=== PATIENT | female | born 1985 | race Two or more races ===

== ENCOUNTER 2018-10-16 22:22 | Emergency (ER) | payer SELFPAY ==
[~2018-10-16] VITALS: Ht 152.4 cm; Wt 87.5 kg
[2018-10-16 23:08] LABS: Urine Bacteria NONE SEEN /hpf (None Seen); Urine Blood Negative /uL (Negative); Urine Specific Gravity 1.021 (1.001-1.035); Urine WBC 11 /hpf (0 - 5)
[2018-10-17 02:05] VITALS: BP 122/92
== END 2018-10-17 02:41 | disposition home or self-care (01) ==
LOC: ER 22:22
DX: S16.1XXA Strain of muscle, fascia and tendon at neck level, initial encounter (principal); X58.XXXA Exposure to other specified factors, initial encounter; Y93.89 Activity, other specified; Y99.8 Other external cause status; Y92.89 Other specified places as the place of occurrence of the external cause
CPT/HCPCS: 72040; 81001; 81025; 82962

== ENCOUNTER 2019-04-01 11:56 | Emergency (ER) | payer MEDICAID, OTHER ==
[~2019-04-01] VITALS: Ht 152.4 cm; Wt 83.5 kg
[2019-04-01 12:45] LABS: Urine Bacteria FEW /hpf (None Seen); Urine Blood Negative /uL (Negative); Urine Mucus FEW (None Seen); Urine Specific Gravity 1.028 (1.001-1.035); Urine WBC 1 /hpf (0 - 5)
[2019-04-01 14:16] VITALS: BP 125/74
== END 2019-04-01 15:23 | disposition home or self-care (01) ==
LOC: ER 12:13
DX: O26.891 Other specified pregnancy related conditions, first trimester (principal); R10.9 Unspecified abdominal pain; Z3A.01 Less than 8 weeks gestation of pregnancy
CPT/HCPCS: 36415; 76801; 81001; 84702

== ENCOUNTER 2019-09-17 19:12 | Observation (INO) | payer MEDICAID ==
[~2019-09-17] VITALS: Ht 152.4 cm; Wt 91.2 kg
[2019-09-17 19:32] VITALS: BP 114/66
[2019-09-17] MEDS ORDERED: TERBUTALINE SULFATE 1 MG/ML 1ML VIAL SC ONE (22:45)
[2019-09-17 23:09] LABS: Urine Bacteria FEW /hpf (None Seen); Urine Blood Negative /uL (Negative); Urine Mucus FEW (None Seen); Urine Specific Gravity 1.029 (1.001-1.035); Urine WBC 3 /hpf (0 - 5)
[2019-09-17 23:19] LABS: Alcohol, Urine < 3.0 mg/dL (0-10); Amphetamine Screen, Urine NEGATIVE (NEGATIVE); Barbiturate Scree,Urine NEGATIVE (NEGATIVE); Benzodiazephine Screen, Urine NEGATIVE (NEGATIVE); Cannabinoid Screen, Urine NEGATIVE (NEGATIVE); Cocaine Screen, Urine NEGATIVE (NEGATIVE); Opiate Scree,Urine NEGATIVE (NEGATIVE); Phencyclidine Screen, Urine NEGATIVE (NEGATIVE)
[2019-09-17] MEDS ORDERED: LACTATED RINGER'S 1,000 ML IV SCH (23:20)
[2019-09-17] MEDS ORDERED: LACTATED RINGER'S 1,000 ML IV ONE (23:20)
== END 2019-09-18 03:12 | disposition home or self-care (01) | DRG 566 ==
LOC: ER 19:12 → LDRP 19:43
PROVIDERS: ADMIT Specialist; ATTEND Specialist
DX: O9A.213 Injury, poisoning and certain other consequences of external causes complicating pregnancy, third trimester (principal); R10.30 Lower abdominal pain, unspecified; O36.8130 Decreased fetal movements, third trimester, not applicable or unspecified; W01.0XXA Fall on same level from slipping, tripping and stumbling without subsequent striking against object, initial encounter; Y93.89 Activity, other specified; Y92.89 Other specified places as the place of occurrence of the external cause; Z3A.31 31 weeks gestation of pregnancy; Z87.891 Personal history of nicotine dependence
CPT/HCPCS: 59025; 76815; 80307; 81001; 81002; 82948; 82962; 96360; 96361; 96372; 99285; G0378; J3105

== ENCOUNTER 2019-09-24 11:29 | Emergency (ER) | payer MEDICAID ==
[~2019-09-24] VITALS: Ht 152.4 cm; Wt 90.3 kg
[2019-09-24 11:52] VITALS: BP 117/44
[2019-09-24] MEDS ORDERED: ACETAMINOPHEN 500 MG TAB PO ONE (12:30)
== END 2019-09-24 12:49 | disposition home or self-care (01) ==
LOC: ER 11:29
DX: O26.893 Other specified pregnancy related conditions, third trimester (principal); M54.42 Lumbago with sciatica, left side; M54.41 Lumbago with sciatica, right side; E11.9 Type 2 diabetes mellitus without complications; Z3A.32 32 weeks gestation of pregnancy

== ENCOUNTER 2021-03-07 20:51 | Emergency (ER) | payer MEDICAID ==
[~2021-03-07] VITALS: Ht 152.4 cm; Wt 93.0 kg
[2021-03-07] MEDS ORDERED: ACETAMINOPHEN 325 MG TAB PO ONE (23:15)
[2021-03-07 23:22] VITALS: BP 124/79
[2021-03-08] MEDS ORDERED: cefTRIAXone W LIDOCAINE 1 GM IM IM ONE (01:45)
[2021-03-08] MEDS ORDERED: DexAMETHasone SOD PHOS 10MG/1ML VIAL INJ IM ONE (01:45)
[2021-03-08] MEDS ORDERED: cefTRIAXone SOD 1,000 MG VL IM ONE (02:00)
== END 2021-03-08 02:29 | disposition home or self-care (01) ==
LOC: ER 20:52
DX: U07.1 COVID-19 (principal); J12.82 Pneumonia due to coronavirus disease 2019
CPT/HCPCS: 36415; 71045; 82962; 87426; 96372; 99284; J0696; J1100

== ENCOUNTER 2021-07-24 10:13 | Emergency (ER) | payer MEDICAID ==
[~2021-07-24] VITALS: Ht 152.4 cm; Wt 88.5 kg
[2021-07-24 10:51] VITALS: BP 135/79
[2021-07-24 11:29] LABS: Basophils # (auto) 0.1 10 ^3/uL (0-0.2); Basophils % (auto) 0.5 % (0.0-2.0); Eosinophils # (auto) 0.1 10 ^3/uL (0-0.8); Eosinophils % (auto) 0.5 % (0.0-7.0); Hematocrit 39.1 % (36.0-46.0); Hemoglobin 13.3 g/dL (12.2-16.2); Lymphocytes # (auto) 2.5 10 ^3/uL (0.4-5.4); Mean Corpuscular Hemoglobin 27.1 pg (28.0-32.0); Mean Corpuscular Hgb Conc. 33.9 g/dL (32.0-36.0); Mean Corpuscular Volume 80.2 fL (80.0-100.0); Monocytes # (auto) 0.5 10 ^3/uL (0-1.3); Neutrophils # (auto) 9.3 10 ^3/uL (1.6-8.6); Red Blood Cells 4.88 10^6/uL (4.0-5.20); Red Cell Distribution Width 13.8 % (11.8-14.3); White Blood Cell 12.4 10^3/uL (4.4-10.8)
[2021-07-24 12:19] LABS: Albumin 3.1 g/dL (3.4-5.0); Potassium 3.7 mmol/L (3.5-5.1)
[2021-07-24 12:22] LABS: BUN/Creatinine Ratio 19.2; Bilirubin, Total 0.4 mg/dL (0.2-1.0); Total Protein 7.3 g/dL (6.4-8.2)
[2021-07-24 13:03] LABS: Urine Bacteria FEW /hpf (None Seen); Urine Blood 3+ /uL (Negative); Urine Budding Yeast MODERATE /hpf (None Seen); Urine Specific Gravity 1.032 (1.001-1.035); Urine WBC 580 /hpf (0 - 5)
[2021-07-24] MEDS ORDERED: NITR-87 PO (13:14)
[2021-07-24] MEDS ORDERED: cefTRIAXone W LIDOCAINE 1 GM IM IM ONE (13:15)
[2021-07-24] MEDS ORDERED: cefTRIAXone SOD 1,000 MG VL ONE (17:21)
[2021-07-24] MEDS ORDERED: HYDROcodone-ACET 5/325MG TAB PO ONE (17:30)
== END 2021-07-24 17:20 | disposition home or self-care (01) ==
LOC: ER 10:13
DX: N39.0 Urinary tract infection, site not specified (principal); N93.8 Other specified abnormal uterine and vaginal bleeding; D21.9 Benign neoplasm of connective and other soft tissue, unspecified; R42 Dizziness and giddiness; Z98.51 Tubal ligation status
CPT/HCPCS: 36415; 76830; 76856; 80053; 81001; 84702; 85025; 96372; 99284; J0696

== ENCOUNTER 2021-10-19 20:23 | Emergency (ER) | payer MEDICAID ==
[~2021-10-19] VITALS: Ht 154.9 cm; Wt 88.0 kg
[~2021-10-19 20:23] MED LIST: NITR-87 PO
[2021-10-19 22:19] VITALS: BP 152/92
== END 2021-10-20 01:38 | disposition left against medical advice (07) ==
LOC: ER 20:23
DX: R10.31 Right lower quadrant pain (principal); R35.0 Frequency of micturition; R30.0 Dysuria; M54.50 Low back pain, unspecified; Z53.21 Procedure and treatment not carried out due to patient leaving prior to being seen by health care provider

== ENCOUNTER 2024-06-14 01:09 | Inpatient (IN) | payer MEDICAID ==
[~2024-06-14] VITALS: Ht 172.7 cm; Wt 83.0 kg
--- NOTE | 2024-06-14 01:42 | ED.PDOC ---
History of Present Illness HPI Comments 39-year-old female presents with a chief complaint of SOB, nausea, vomiting, and constipation. Patient is a poor historian. Patient mentions that she has not had a bowel movement in 1 week. Patient mentions that anything that she drinks or eats she ends up vomiting it back up. Patient denies any blood in her emesis. Patient also denies any abdominal pain. Patient is requesting to be tested for COVID-19. Chief Complaint: Shortness of Breath Time Seen by MD: 01:32 Primary Care Provider: OUT OF AREA Reviewed Notes: Medications, Allergies Allergies: Coded Allergies: NO KNOWN ALLERGIES (Unverified , 10/16/18) Home Meds Active Scripts Nitrofurantoin Monohydrate Mac (Macrobid) 100 Mg Cap, 100 MG PO BID for 7 Days, #14 CAP Prov:HORTENSIA BERRIOS MD 07/24/21 Information Source: Patient Mode of Arrival: Ambulatory Severity: Moderate Timing: Days Duration: Since onset Prehospital treatment: None Past Medical History PAST MEDICAL HISTORY: DM Surgical History: , Tubal Ligation AIR INTELLIGENCE OFFICER History: Denies all AIR INTELLIGENCE OFFICER Hx Family History Family History: Reviewed,noncontributory to illness Social History Smoker: Non-Smoker Alcohol: Denies ETOH Use Drugs: Denies Drug Use Lives In: Home Constitutional: denies: chills, diaphoresis, fatigue, fever, malaise, sweats, weakness, others EENTM: denies: blurred vision, double vision, ear bleeding, ear discharge, ear drainage, ear pain, ear ringing, eye pain, eye redness, hearing loss, mouth pain, mouth swelling, nasal discharge, nose bleeding, nose congestion, nose pain, photophobia, tearing, throat pain, throat swelling, voice changes, others Respiratory: reports: shortness of breath; denies: cough, hemoptysis, orthopnea, SOB at rest, SOB with excertion, stridor, wheezing, others Cardiovascular: denies: chest pain, dizzy spells, diaphoresis, Dyspnea on exertion, edema, irregular heart beat, left arm pain, lightheadedness, palpitations, PND, syncope, others Gastrointestinal: reports: constipated, nausea, vomiting; denies: abdomen distended, abdominal pain, blood streaked bowels, diarrhea, dysphagia, difficult y swallowing, hematemesis, melena, poor appetite, poor fluid intake, rectal bleeding, rectal pain, others Genitourinary: denies: abnormal vagina bleeding, burning, dyspareunia, dysuria, flank pain, frequency, hematuria, incontinence, pain, , vagina discharge, urgency, others Neurological: denies: dizziness, fainting, headache, left sided numbness, left sided weakness, numbness, paresthesia, pre-existing deficit, right sided numbness, right sided weakness, seizure, speech problems, tingling, tremors, weakness, others Musculoskeletal: denies: back pain, gout, joint pain, joint swelling, muscle pain, muscle stiffness, neck pain, others Integumetry: denies: bruises, change in color, change in hair/nails, dryness, laceration, lesions, lumps, rash, wounds, others Allergic/Immunocompromised: denies: Difficulty Healing, Frequent Infections, Hives, Itching, others Hematologic/Lymphatic: denies: anemia, blood clots, easy bleeding, easy bruising, swollen glands, others Endocrine: denies: excessive hunger, excessive sweating, excessive thirst, excessive urination, flushing, intolerance to cold, intolerance to heat, unexplained weight gain, unexplained weight loss, others Psychiatric: denies: anxiety, bipolar disorder, depression, hopeless, panic disorder, schizophrenia, sleepless, suicidal, others All Other Systems: Reviewed and Negative Physical Exam General Appearance: No Apparent Distress, Normal HEENT: Normal ENT Inspection, Pharynx Normal, TMs Normal Neck: Full Range of Motion, Non-Tender, Normal, Normal Inspection Respiratory: Chest Non-Tender, Lungs Clear, No Accessory Muscle Use, No Respiratory Distress, Normal Breath Sounds Cardiovascular: No Edema, No JVD, No Murmur, No Gallop, Normal Peripheral Pulses, Regular Rate/Rhythm Breast Exam: Deferred Gastrointestinal: No Organomegaly, Non Tender, No Pulsatile Mass, Normal Bowel Sounds, Soft Genitalia: Deferred Pelvic: Deferred Rectal: Deferred Extremities: No calf tenderness, Normal capillary refill, Normal inspection, Normal range of motion, Non-tender, No pedal edema Musculoskeletal : Apperance: Normal Neurologic: Alert, software educator II-XII nml as Tested, No Motor Deficits, Normal Affect, Normal Mood, No Sensory Deficits Cerebellar Function: Normal Reflexes: Normal Skin: Dry, Normal Color, Warm Lymphatic: No Adenopathy Was a procedure done? Was a procedure done?: No Differential Dx Considerations may include: Differential diagnosis includes but is not limited to: asthma, pneumonia, congestive heart failure, pleural effusion, empyema, pulmonary embolus, and others X-Ray, Labs, Meds, VS Vital Signs Date Time Temp Pulse Resp B/P (MAP) Pulse Ox O2 Delivery O2 Flow Rate FiO2 06/14/24 03:04 114 28 96 Room Air* 0 21 06/14/24 01:44 20 100 Room Air* 0 21 06/14/24 01:40 97.5 101 28 111/56 (74) 98 97.5 06/14/24 01:33 97.8 110 30 107/72 (84) 97 97.8 06/14/24 01:33 30 97 Room Air 0 Lab Test 06/14/24 03:05 06/14/24 02:31 06/14/24 01:57 06/14/24 01:24 Range/Units Urine Color Colorless Yellow Urine Clarity Turbid H Clear Urine pH 5.5 5.0-9.0 Urine Specific [place] 1.013 1.001-1.035 Urine Protein Trace H Negative Urine Ketones 3+ H Negative Urine Blood 1+ H Negative /uL Urine Nitrite Negative Negative Urine Bilirubin Negative Negative Urine Urobilinogen Normal Negative mg/dL Urine Leukocyte Esterase 3+ Negative /uL Urine RBC 2 0 - 4 /hpf Urine WBC Clumps Present None Seen /hpf Urine Microscopic WBC 570 H 0-5 /HPF Urine Squamous Epithelial Cells Few <5 /hpf Urine Bacteria Few H None Seen /hpf Urine Glucose 4+ H Normal mg/dL Influenza Type A Antigen Negative Negative Influenza Type B Antigen Negative Negative SARS-CoV-2 Antigen (Rapid) Negative NEGATIVE White Blood Count 10.0 4.4-10.8 10^3/uL Red Blood Count 4.19 4.0-5.20 10^6/uL Hemoglobin 12.0 L 12.2-16.2 g/dL Hematocrit 34.7 L 36.0-46.0 % Mean Corpuscular Volume 82.7 80.0-100.0 fL Mean Corpuscular Hemoglobin 28.6 28.0-32.0 pg Mean Corpuscular Hemoglobin Concent 34.7 32.0-36.0 g/dL Red Cell Distribution Width 13.0 11.8-14.3 % Platelet Count 333 140-450 10^3/uL Mean Platelet Volume 7.6 6.9-10.8 fL Neutrophils (%) (Auto) 81.4 H 37.0-80.0 % Lymphocytes (%) (Auto) 10.6 10.0-50.0 % Monocytes (%) (Auto) 7.4 0.0-12.0 % Eosinophils (%) (Auto) 0.0 0.0-7.0 % Basophils (%) (Auto) 0.6 0.0-2.0 % Neutrophils # (Auto) 8.1 1.6-8.6 10 ^3/uL Lymphocytes # (Auto) 1.1 0.4-5.4 10 ^3/uL Monocytes # (Auto) 0.7 0-1.3 10 ^3/uL Eosinophils # (Auto) 0 0-0.8 10 ^3/uL Basophils # (Auto) 0.1 0-0.2 10 ^3/uL Nucleated Red Blood Cells 0.0 % Sodium Level 124 L 136-145 mmol/L Potassium Level 4.0 3.5-5.1 mmol/L Chloride Level 91 L 98-107 mmol/L Carbon Dioxide Level 21 20-31 mmol/L Anion Gap 12 5-15 Blood Urea Nitrogen 6 L 9-23 mg/dL Creatinine 0.83 0.550-1.02 mg/dL Glomerular Filtration Rate Calc 93 >90 mL/min BUN/Creatinine Ratio 7.2 L 10.0-20.0 Serum Glucose 392 H 74-106 mg/dL Calcium Level 9.0 8.7-10.4 mg/dL Total Bilirubin 0.6 0.2-1.0 mg/dL Aspartate Amino Transferase (AST) 44 H 13-40 U/L Alanine Aminotransferase (ALT) 67 H 7-40 U/L Alkaline Phosphatase 320 H 46-116 U/L B-Type Natriuretic Peptide 11.29 0-100 pg/mL Total Protein 6.6 5.7-8.2 g/dL Albumin 4.1 3.2-4.8 g/dL POC Glucose 394 H 70-106 mg/dl Current Medications Medications (Trade) Dose Ordered Sig/Shraddha Route Start Time Stop Time Status Last Admin Albuterol (Ventolin Medneb) 5 mg ONCE ONCE NEB 06/14/24 01:45 06/14/24 01:46 DC 06/14/24 01:47 Ipratropium [place] (Atrovent Medneb) 0.5 mg ONCE ONCE NEB 06/14/24 01:45 06/14/24 01:46 DC 06/14/24 01:47 Ondansetron HCl (Zofran) 4 mg ONCE ONCE IV 06/14/24 02:15 06/14/24 02:16 DC 06/14/24 02:17 Time of 1ST Reevaluation: 02:02 Reevaluation 1ST: Unchanged Patient Education/Counseling: Diagnosis, Treatment, Prognosis Family Education/Counseling: No Family Present Sepsis focused exam: focus exam completed (In the initial resuscitation at least 30 mL/kg of IV crystalloid fluid was NOT given within the first 3 hr due to concerns of fluid overload), time: (0300) Sepsis Sepsis Reasesment Focused Exam Sepsis focused exam: focus exam completed (In the initial resuscitation at least 30 mL/kg of IV crystalloid fluid was NOT given within the first 3 hr due to concerns of fluid overload), time: (0300) Departure 1 Departure Time of Disposition: 03:51 Impression: Primary Impression: Urinary tract infection Additional Impressions: Diabetes mellitus with hyperglycemia Hyponatremia Dehydration Disposition: 09 ADMITTED INPATIENT Condition: Guarded Comments Hyperglycemia, UTI, and Weakness Chief Complaint: Malaise, generalized weakness, bilateral flank pain, and shortness of breath History of Present Illness: 39-year-old female with a history of type 2 diabetes mellitus presents to the emergency department with complaints of malaise, generalized weakness, bilateral flank pain, and shortness of breath. Patient reports symptoms not improving despite interventions in the ED including IV fluid administration. Laboratory evaluation reveals significant hyperglycemia and evidence of urinary tract infection. Review of Systems: Constitutional: Positive for malaise and generalized weakness Respiratory: Positive for shortness of breath Genitourinary: Positive for bilateral flank pain All other systems reviewed and negative Past Medical History: Type 2 Diabetes Mellitus Lab Results: WBC: 10.0 (Normal) Hemoglobin: 12 Hematocrit: 35 Platelets: 333 (Normal) Sodium: 124 (Low) Blood Glucose: 394 mg/dL (Elevated) Urinalysis: Positive for infection Imaging and Other Relevant Results: No imaging studies documented Medical Decision Making: Summary Statement: 39-year-old female with poorly controlled diabetes presents with systemic symptoms, hyperglycemia, hyponatremia, and evidence of urinary tract infection with possible pyelonephritis. Problem List: 1. Severe hyperglycemia (glucose 394) 2. Urinary tract infection with possible pyelonephritis 3. Hyponatremia (Na 124) 4. Generalized weakness and malaise Differential Diagnosis: 1. Pyelonephritis 2. Diabetic ketoacidosis 3. Hyperglycemic hyperosmolar state 4. Sepsis 5. Simple urinary tract infection ED Course: Patient received IV fluid hydration without significant improvement in symptoms. Given the severity of hyperglycemia, evidence of infection, and persistent symptoms, decision made to admit for inpatient management. Assessment and Plan: 1. Hyperglycemia (Glucose 394) - Admit for blood glucose management - Initiate insulin protocol - Frequent blood glucose monitoring 2. Urinary Tract Infection with possible early pyelonephritis - Start broad-spectrum antibiotics - Blood cultures if not already obtained - Monitor response to treatment 3. Hyponatremia (Na 124) - Close monitoring of electrolytes - Careful fluid management considering both hyperglycemia and infection Disposition: Admit to medical floor for management of above conditions Billing Information: ICD-10: E11.65 - Type 2 diabetes mellitus with hyperglycemia ICD-10: N39.0 - Urinary tract infection, site not specified ICD-10: N10 - Acute pyelonephritis ICD-10: E87.1 - Hypo-osmolality and hyponatremia Critical Care Note Critical Care Time?: Yes (35 min-critical care time only) Critical care comment: Total critical care time: Approximately 36 minutes Due to a high probability of clinically significant, life threatening deterioration, the patient required my highest level of preparedness to intervene emergently and I personally spent this critical care time directly and personally managing the patient. This critical care time included obtaining a history; examining the patient; pulse oximetry; ordering and review of studies; arranging urgent treatment with development of a management plan; evaluation of patient's response to treatment; frequent reassessment; and, discussions with other providers. This critical care time was performed to assess and manage the high probability of imminent, life-threatening deterioration that could result in multi-organ failure. It was exclusive of separately billable procedures and treating other patients. Stability Stability form required: No Heart Score Heart Score: Heart Score Response (Comments) Value History N/A 0 EKG N/A 0 Age N/A 0 Risk Factors N/A 0 Troponin N/A 0 Total 0 I personally scribed for MIKO SHIELDS MD ([email or web address]) on 06/14/24 at 01:42. Electronically submitted by Gabriel Bennett ([email or web address]). MIKO SHIELDS MD Jun 14, 2024 01:42
[2024-06-14] MEDS: IPRATROPIUM BROM 0.5 MG/2.5ML INH SOL NEB ONE (01:47)
[2024-06-14] MEDS: ALBUTEROL SULF 2.5 MG/0.5ML(0.5%) NEB SOLN NEB ONE (01:47)
[2024-06-14 02:02] LABS: Basophils # (auto) 0.1 10 ^3/uL (0-0.2); Basophils % (auto) 0.6 % (0.0-2.0); Eosinophils # (auto) 0 10 ^3/uL (0-0.8); Hematocrit 34.7 % (36.0-46.0); Lymphocytes # (auto) 1.1 10 ^3/uL (0.4-5.4); Lymphocytes % (auto) 10.6 % (10.0-50.0); Mean Corpuscular Hemoglobin 28.6 pg (28.0-32.0); Mean Corpuscular Hgb Conc. 34.7 g/dL (32.0-36.0); Mean Corpuscular Volume 82.7 fL (80.0-100.0); Monocytes # (auto) 0.7 10 ^3/uL (0-1.3); Monocytes % (auto) 7.4 % (0.0-12.0); Neutrophils # (auto) 8.1 10 ^3/uL (1.6-8.6); Neutrophils % (auto) 81.4 % (37.0-80.0); Platelet Count (auto) 333 10^3/uL (140-450); Red Blood Cells 4.19 10^6/uL (4.0-5.20)
[2024-06-14] MEDS: ONDANSETRON HCL 4 MG/2 ML VIAL IV ONE (02:17)
[2024-06-14 02:22] LABS: Albumin 4.1 g/dL (3.2-4.8); Anion Gap 12 (5-15); BUN/Creatinine Ratio 7.2 (10.0-20.0); Carbon Dioxide 21 mmol/L (20-31); Total Protein 6.6 g/dL (5.7-8.2)
[2024-06-14 02:23] LABS: Alanine Aminotransferase 67 U/L (7-40); Alkaline Phosphatase 320 U/L (46-116); Aspartate Aminotransferase 44 U/L (13-40); Bilirubin, Total 0.6 mg/dL (0.2-1.0); Blood Urea Nitrogen 6 mg/dL (9-23); Chloride 91 mmol/L (98-107); Glucose 392 mg/dL (74-106); Sodium 124 mmol/L (136-145)
--- NOTE | 2024-06-14 02:24 | DVH ---
CHEST RADIOGRAPH Indication: SOB Technique: Single frontal view of the chest was obtained COMPARISON: CHEST PORTABLE on DOS: 03/07/21 FINDINGS: Lines and Tubes: None Lungs: Clear Pleura: No effusion. No pneumothorax. Cardiomediastinal contours: Unremarkable Bones: Unremarkable IMPRESSION: 1. No acute disease.
[2024-06-14] MEDS: predniSONE 20 MG TAB PO ONE (02:48)
[2024-06-14 03:04] VITALS: PULSE 114; RESP 28; O2SAT 96
[2024-06-14 03:07] LABS: COVID19 ANTIGEN SOFIA FIA NEGATIVE (NEGATIVE); Rapid Influenza A Negative (Negative); Rapid Influenza B Negative (Negative)
[2024-06-14 03:24] LABS: Urine Bacteria FEW /hpf (None Seen); Urine Blood 1+ /uL (Negative); Urine Clarity Turbid (Clear); Urine Color Colorless (Yellow); Urine Protein, UAD TRACE (Negative); Urine Specific Gravity 1.013 (1.001-1.035); Urine Squamous Epithelial Cell FEW /hpf (<5); Urine Urobilinogen Normal (Negative); Urine WBC 570 /HPF (0-5); Urine WBC Clumps PRESENT /hpf (None Seen); Urine pH 5.5 (5.0-9.0)
[2024-06-14] MEDS: InsuLIN REG 1unit/0.01ml Soln (100units/ml) SC ONE ×2 (04:17→09:48)
[2024-06-14] MEDS: cefTRIAXone 1GM/50ML D5W 50 ML IV ONE (04:18)
[2024-06-14] MEDS: SODIUM CHLORIDE 0.9% 1,000 ML IV ONE (04:18)
[2024-06-14] MEDS ORDERED: MORPHINE SULFATE INJ 2 MG/ml SYRG IV PRN (07:45)
[2024-06-14] MEDS ORDERED: ONDANSETRON HCL 4 MG/2 ML VIAL IV PRN (07:45)
[2024-06-14] MEDS ORDERED: HYDROcodone-ACET 5/325MG TAB PO PRN (07:45)
[2024-06-14 07:53] VITALS: PULSE 110; RESP 22; O2SAT 96
[2024-06-14 07:55] LABS: Triglycerides 229 mg/dL (< 150)
[2024-06-14 07:56] LABS: LDL Cholesterol 178 mg/dL (< 100)
[2024-06-14 07:58] LABS: Cholesterol 250 mg/dL (< 200); HDL Cholesterol 34 mg/dL (40-59)
[2024-06-14] MEDS: ACCU-CHEK COMFORT CURVE STRIP VI ONE (08:45)
[2024-06-14] MEDS: DEXTROSE (50%) 50ML SYRG IV ONE (08:45)
--- NOTE | 2024-06-14 09:00 | DVHHP2 ---
History of Present Illness Reason for Visit: Shortness of breath History of Present Illness This 39-year-old female presents in the ED with a chief complaint of shortness of breath, nausea, vomiting, and constipation. The patient states recently seen by PCP and was informed the A1c was 13, she is on Ozempic and Jardiance and have a follow-up appointment this coming Saturday. In the emergency department the patient is found to have hyperglycemia and UTI. The patient denies chest pain, vomiting, melena. Denies tobacco, illicit drug, or ETOH use. Past Medical History As stated in HPI Past Surgical History c-sec Tubal ligation Family History Reviewed, non-contributory to the management of this case. Past Social History The patient lives at home, denies smoking, alcohol or illicit drugs abuse. Review of Systems Constitutional: Yes: Malaise; No: Fever, Chills, Sweats, Weakness, Other Eyes: No: Pain, Vision change, Conjunctivae inflammation, Eyelid inflammation, Other, Redness ENT: No: Ear pain, Ear discharge, Nose pain, Nose discharge, Nose congestion, Mouth pain, Mouth swelling, Throat pain, Throat swelling, Other Respiratory: Shortness of breath; No: Cough, Dry, SOB with excertion, Wheezing, Hemoptysis, Pleuritic Pain, Sputum, Wheezing, Other Cardiovascular: No: Chest Pain, Palpitations, Orthopnea, Paroxysmal Noc. Dyspnea, Edema, Lt Headedness, Other Gastrointestinal: Nausea, Constipation; No: Vomiting, Abdominal Pain, Diarrhea, Melena, Hematochezia, Other Genitourinary: No Dysuria, No Frequency, No Incontinence, No Hematuria, No Ret ention, No Other Musculoskeletal: No: other, neck pain, shoulder pain, arm pain, back pain, hand pain, leg pain, foot pain Neurological: No: Weakness, Numbness, Incoordination, Change in speech, Confusion, Seizures, Other Allergies: Coded Allergies: NO KNOWN ALLERGIES (Unverified , 10/16/18) Medications Current Medications Medications Dose Ordered Sig/Shraddha Route Start Time Stop Time Status Last Admin Dose Admin Acetaminophen/ Hydrocodone Bitart 1 tab Q4HP PRN PO 06/14/24 07:45 Ondansetron HCl 4 mg Q4HP PRN IV 06/14/24 07:45 Acetaminophen 650 mg Q6HP PRN PO 06/14/24 07:45 Morphine Sulfate 2 mg Q4HPRN PRN IV 06/14/24 07:45 Exam Vital Signs Vital Signs Date Time Temp Pulse Resp B/P (MAP) Pulse Ox O2 Delivery O2 Flow Rate FiO2 06/14/24 08:00 98.6 97 20 112/65 (81) 95 98.6 06/14/24 07:53 Room Air* 0 21 General Appearance: Alert, Oriented X3, Cooperative, No acute distress HEENT: Atraumatic, PERRLA, EOMI, Mucous membr. moist/pink Respiratory: Clear to auscultation, Normal air movement Cardiovascular: Regular rate, Normal S1, Normal S2, No murmurs Abdominal: Normal bowel sounds, No tenderness, No hepatospenomegaly Extremities: No clubbing, No cyanosis, No edema, Normal pulses Skin: No rashes, No breakdown, No significant lesion Neuro: Normal gait, Normal speech, Strength at 5/5 X4 ext, Normal tone Psych/Mental Status: Mental status NL Labs/Xrays Labs Test 06/14/24 07:23 06/14/24 04:16 06/14/24 03:05 06/14/24 02:31 Range/Units POC Glucose 300 H 70-106 mg/dl Lactic Acid Level 1.0 0.4-2.0 mmol/L Urine Color Colorless Yellow Urine Clarity Turbid H Clear Urine pH 5.5 5.0-9.0 Urine Specific [place] 1.013 1.001-1.035 Urine Protein Trace H Negative Urine Ketones 3+ H Negative Urine Blood 1+ H Negative /uL Urine Nitrite Negative Negative Urine Bilirubin Negative Negative Urine Urobilinogen Normal Negative mg/dL Urine Leukocyte Esterase 3+ Negative /uL Urine RBC 2 0 - 4 /hpf Urine WBC Clumps Present None Seen /hpf Urine Microscopic WBC 570 H 0-5 /HPF Urine Squamous Epithelial Cells Few <5 /hpf Urine Bacteria Few H None Seen /hpf Urine Glucose 4+ H Normal mg/dL Influenza Type A Antigen Negative Negative Influenza Type B Antigen Negative Negative SARS-CoV-2 Antigen (Rapid) Negative NEGATIVE Test 06/14/24 01:57 Range/Units White Blood Count 10.0 4.4-10.8 10^3/uL Red Blood Count 4.19 4.0-5.20 10^6/uL Hemoglobin 12.0 L 12.2-16.2 g/dL Hematocrit 34.7 L 36.0-46.0 % Mean Corpuscular Volume 82.7 80.0-100.0 fL Mean Corpuscular Hemoglobin 28.6 28.0-32.0 pg Mean Corpuscular Hemoglobin Concent 34.7 32.0-36.0 g/dL Red Cell Distribution Width 13.0 11.8-14.3 % Platelet Count 333 140-450 10^3/uL Mean Platelet Volume 7.6 6.9-10.8 fL Neutrophils (%) (Auto) 81.4 H 37.0-80.0 % Lymphocytes (%) (Auto) 10.6 10.0-50.0 % Monocytes (%) (Auto) 7.4 0.0-12.0 % Eosinophils (%) (Auto) 0.0 0.0-7.0 % Basophils (%) (Auto) 0.6 0.0-2.0 % Neutrophils # (Auto) 8.1 1.6-8.6 10 ^3/uL Lymphocytes # (Auto) 1.1 0.4-5.4 10 ^3/uL Monocytes # (Auto) 0.7 0-1.3 10 ^3/uL Eosinophils # (Auto) 0 0-0.8 10 ^3/uL Basophils # (Auto) 0.1 0-0.2 10 ^3/uL Nucleated Red Blood Cells 0.0 % Sodium Level 124 L 136-145 mmol/L Potassium Level 4.0 3.5-5.1 mmol/L Chloride Level 91 L 98-107 mmol/L Carbon Dioxide Level 21 20-31 mmol/L Anion Gap 12 5-15 Blood Urea Nitrogen 6 L 9-23 mg/dL Creatinine 0.83 0.550-1.02 mg/dL Glomerular Filtration Rate Calc 93 >90 mL/min BUN/Creatinine Ratio 7.2 L 10.0-20.0 Serum Glucose 392 H 74-106 mg/dL Calcium Level 9.0 8.7-10.4 mg/dL Total Bilirubin 0.6 0.2-1.0 mg/dL Aspartate Amino Transferase (AST) 44 H 13-40 U/L Alanine Aminotransferase (ALT) 67 H 7-40 U/L Alkaline Phosphatase 320 H 46-116 U/L B-Type Natriuretic Peptide 11.29 0-100 pg/mL Total Protein 6.6 5.7-8.2 g/dL Albumin 4.1 3.2-4.8 g/dL Triglycerides Level 229 H < 150 mg/dL Cholesterol Level 250 H < 200 mg/dL LDL Cholesterol 178 H < 100 mg/dL HDL Cholesterol 34 L 40-59 mg/dL PROCEDURE(s): CXRP - CHEST PORTABLE REASON: SOB ORDER NUMBER(s): [id number], ACCESSION NUMBER(s): [id number] CHEST RADIOGRAPH Indication: SOB Technique: Single frontal view of the chest was obtained COMPARISON: CHEST PORTABLE on DOS: 03/07/21 FINDINGS: Lines and Tubes: None Lungs: Clear Pleura: No effusion. No pneumothorax. Cardiomediastinal contours: Unremarkable Bones: Unremarkable IMPRESSION: 1. No acute disease. Assessment/Plan Assessment/Plan # uncontrolled diabetes # type 2 diabetes with hyperglycemia, reported A1c of 13 Admit to medical unit Insulin sliding scale Lantus 16 units qhs Check A1c statins # acute UTI Ceftriaxone Urine culture # mild hyponatremia IV NS Monitor # transaminitis Check hepatitis collection supervisor # dyslipidemia Statins DVT prophylaxis Medical plan discussed with patient Plan discussed with: Patient My Orders Orders - MERRITT PINTO EVENTS DIRECTOR Procedure Category Date Status Time Hemoglobin A1c LAB 06/14/24 In Process 07:21 Admit ADMIT 06/14/24 Transmitted 07:38 Code Status CODE 06/14/24 Transmitted 07:38 Hydrocodone-Acet PHA 06/14/24 In Process 5/325mg Tab ([place] 07:45 Ondansetron Hcl PHA 06/14/24 In Process (Zofran) 07:45 Complete Blood Count LAB 06/15/24 Verified 04:00 Comprehensive LAB 06/15/24 Verified Metabolic Panel 04:00 Cardiac DIET 06/14/24 Transmitted Diet-2gna,Lofat,Lochol Breakfast Condition: Fair NASIR 06/14/24 In Process 07:38 Acetaminophen Tablet PHA 06/14/24 In Process (Tylenol Tablet) 07:45 Morphine Sulfate PHA 06/14/24 In Process Injection 07:45 Glucose Blood PHA 06/14/24 Logged (Accu-Chek Comfort 08:45 Insulin R (Human) PHA 06/14/24 Logged (Insulin R) 08:45 Dextrose 50% Syringe PHA 06/14/24 Logged 08:45 Insulin Lantus PHA 06/14/24 Logged (Glargine) (Lantus) 08:45 Date of Service: Jun 14, 2024 Billing Provider: MERRITT PINTO Common Visit Codes: [id number] INP/OBS CARE (HIGH) MERRITT PINTO Jun 14, 2024 09:00
[2024-06-14] MEDS ORDERED: EMPA1TAB3 PO (09:24)
[2024-06-14] MEDS: SODIUM CHLORIDE 0.9% 1,000 ML IV SCH (09:36)
[2024-06-14] MEDS: cefTRIAXone 1GM/50ML D5W 50 ML IV SCH (09:41)
[2024-06-14] MEDS: INSULIN LANTUS (GLARGINE) 1 /0.01ml (100units/ml) SC ONE (09:48)
[2024-06-14 10:37] VITALS: PULSE 105; RESP 16; O2SAT 95
[2024-06-14] MEDS ORDERED: SEMA2INJ3 SC (10:47)
[2024-06-14] MEDS: ACETAMINOPHEN 325 MG TAB PO PRN (10:54)
[2024-06-14] MEDS ORDERED: DEXTROSE (50%) 50ML SYRG IV PRN (11:30)
[2024-06-14] MEDS: ACCU-CHEK COMFORT CURVE STRIP VI SCH (11:36)
[2024-06-14] MEDS: InsuLIN REG 1unit/0.01ml Soln (100units/ml) SC SCH (11:54)
[2024-06-14 13:00] VITALS: BP 124/71; PULSE 100; RESP 20; TEMP 99.8; O2SAT 97
[2024-06-14] MEDS ORDERED: LACTULOSE 20Gm/30ML SOLN PO ONE (13:45)
[2024-06-14] MEDS: LACTULOSE 20Gm/30ML SOLN PO ONE (14:39)
[2024-06-14 17:00] VITALS: BP 102/62; PULSE 85; RESP 20; TEMP 99.5; O2SAT 95
[2024-06-14 21:00] VITALS: BP 125/27; PULSE 99; RESP 18; TEMP 100.6; O2SAT 100
[2024-06-14] MEDS: LACTULOSE 20Gm/30ML SOLN PO SCH (22:00)
[2024-06-14] MEDS ORDERED: LACTULOSE 20Gm/30ML SOLN PO SCH (22:00)
[2024-06-14] MEDS: ATORVASTATIN 20 MG TAB PO SCH (22:00)
[2024-06-14] MEDS: INSULIN LANTUS (GLARGINE) 1 /0.01ml (100units/ml) SC SCH (22:42)
[2024-06-15] VITALS (8 sets, daily range): BP systolic 100–117; BP diastolic 52–79; PULSE 68–101; RESP 16–19; TEMP 97.5–101.4; O2SAT 94–100
[2024-06-15 06:56] LABS: Basophils # (auto) 0 10 ^3/uL (0-0.2); Basophils % (auto) 0.3 % (0.0-2.0); Eosinophils # (auto) 0 10 ^3/uL (0-0.8); Eosinophils % (auto) 0.5 % (0.0-7.0); Hematocrit 31.9 % (36.0-46.0); Hemoglobin 11.2 g/dL (12.2-16.2); Lymphocytes # (auto) 1.1 10 ^3/uL (0.4-5.4); Lymphocytes % (auto) 17.6 % (10.0-50.0); Mean Corpuscular Hemoglobin 28.7 pg (28.0-32.0); Mean Corpuscular Hgb Conc. 35.1 g/dL (32.0-36.0); Mean Corpuscular Volume 81.9 fL (80.0-100.0); Monocytes # (auto) 0.7 10 ^3/uL (0-1.3); Monocytes % (auto) 10.7 % (0.0-12.0); Neutrophils # (auto) 4.3 10 ^3/uL (1.6-8.6); Neutrophils % (auto) 70.9 % (37.0-80.0); Platelet Count (auto) 338 10^3/uL (140-450); Red Cell Distribution Width 13.3 % (11.8-14.3); White Blood Cell 6.1 10^3/uL (4.4-10.8)
[2024-06-15 07:12] LABS: Albumin 3.6 g/dL (3.2-4.8); Anion Gap 10 (5-15); Carbon Dioxide 25 mmol/L (20-31); Chloride 100 mmol/L (98-107); Potassium 3.5 mmol/L (3.5-5.1); Total Protein 6.1 g/dL (5.7-8.2)
[2024-06-15 07:13] LABS: Bilirubin, Total 0.4 mg/dL (0.2-1.0)
[2024-06-15 07:21] LABS: Alanine Aminotransferase 122 U/L (7-40); Alkaline Phosphatase 364 U/L (46-116); Aspartate Aminotransferase 115 U/L (13-40); BUN/Creatinine Ratio 8.9 (10.0-20.0); Blood Urea Nitrogen < 5 mg/dL (9-23); Glucose 134 mg/dL (74-106); Sodium 135 mmol/L (136-145)
[2024-06-15 10:38] LABS: Hepatitis A Ab IgM Negative; Hepatitis B Core IgM Negative (Negative); Hepatitis B Surface Antigen Negative (Negative); Hepatitis C Antibody Negative (Negative)
--- NOTE | 2024-06-15 13:23 | DVHPNRES ---
Progress Note Date Seen: Jun 15, 2024 Resident Creating Document: A Has the PT tested + for MRSA If YES, has PT been informed?: No Medical Necessity Reason Pt with a Central, PICC or Fol: No Medical Necessity Reason This is a 39-year-old female with a past medical history of type 2 DM diagnosed many years ago presented to the ED with intermittent chest pain, shortness of breath nausea vomiting and constipation. According to the patient she is not really taking her diabetes seriously and has not been compliant with her lifestyle medications and medications. She actually visited her primary care physician 2 weeks ago where her A1c level was measured to be 13. Patient was started on Ozempic and Jardiance and was asked to follow up in 2 weeks, this Saturday. However, patient presented to the ED because she started feeling unwell bilateral flank pain and from there went downhill thus prompting this visit. In ED, UA was positive for UTI blood glucose 349-->234---> 147 with A1C of 10.7. Patient started on mild ACHS. 12 lead ekg shows sinus rhythm no ST changes noted on any lead. Today, during my evaluation, patient has no complaints. No tingling sensation, glove and stocking sensation, blurring vision, vomiting, melena, tobacco, illicit drug, or ETOH use. Past Medical History: DM Past Surgical History: C-sec,Tubal ligation Family History: Diabetes, hyperlipidemia and heart disease Past Social History: The patient lives at home, denies smoking, alcohol or illicit drugs abuse and currently going through , 4 children Medication: On Ozempic and Jardiance Subjective Review of Systems Constitutional: Denies fever no chills no feeling of malaise HEENT: Mild headache, ear pain, ear discharges, conjunctivitis, nasal discharge throat pain Cardiovascular: Denies chest pain, palpitation, orthopnea, PND, or pedal edema Respiratory: Denies shortness of breath, cough cough, sputum production, hemoptysis, GI: Denies abdominal pain, nausea, vomiting, diarrhea, hematemesis, hematochezia, : Denies frequency, urgency, hematuria, Endocrine: Denies unintentional weight gain or weight loss, feeling of hot flashes, Roger: Denies easy bruising, bleeding disorders, epistaxis Musculoskeletal: Denies joint pains, muscle aches Psych: No evidence of depression, babs, suicidal ideation Objective vital signs Vital Sign Date Time Temp Pulse Resp B/P (MAP) Pulse Ox O2 Delivery O2 Flow Rate FiO2 06/15/24 09:00 98.4 68 17 109/63 (78) 96 98.4 06/15/24 08:00 Room Air* 0 21 Total Intake and Output 06/14/24 06/14/24 06/15/24 15:00 23:00 07:00 Intake Total 50 ml 40 ml 950 ml Output Total 1 ml 300 ml Balance 50 ml 39 ml 650 ml medications Current Medications Medications Dose Ordered Sig/Shraddha Route Start Time Stop Time Status Last Admin Dose Admin Acetaminophen/ Hydrocodone Bitart 1 tab Q4HP PRN PO 06/14/24 07:45 Ondansetron HCl 4 mg Q4HP PRN IV 06/14/24 07:45 Acetaminophen 650 mg Q6HP PRN PO 06/14/24 07:45 06/14/24 10:54 650 MG Morphine Sulfate 2 mg Q4HPRN PRN IV 06/14/24 07:45 Atorvastatin Calcium 40 mg HS PO 06/14/24 22:00 Ceftriaxone Sodium 50 ml @ 100 mls/hr DAILY@09 IV 06/14/24 09:00 06/15/24 09:00 100 MLS/HR Sodium Chloride 1,000 ml @ 100 mls/hr Q10H IV 06/14/24 09:00 06/15/24 05:41 100 MLS/HR Diagnostic Test (Pha) 1 strip ACHS 06/14/24 11:30 06/15/24 11:30 1 STRIP Insulin Human Regular ACHS SC 06/14/24 11:30 06/15/24 05:43 2 UNITS Dextrose 50 ml UD PRN IV 06/14/24 11:30 Insulin Glargine 16 units HS SC 06/14/24 22:00 06/14/24 22:42 16 UNITS Lactulose 15 ml BID PO 06/14/24 22:00 Examination General Appearance: Alert, Oriented X3, Cooperative, No acute distress HEENT: Atraumatic, PERRLA, EOMI, Mucous membrane moist/pink Respiratory: Clear to auscultation, Normal air movement Cardiovascular: Regular rate, Normal S1, Normal S2, No murmurs, no chest wall tenderness Abdominal: NO distention, no tenderness, bowel sounds present, no scars noted Extremities: No clubbing, No cyanosis, No edema, Normal pulses, No tenderness/swelling Skin: No rashes, No breakdown, No significant lesion Neuro: Normal gait, Normal speech, Strength at 5/5 X4 ext, Normal tone, Sensation intact, Cranial nerves 3-12 NL, Reflexes 2+ Psych/Mental Status: Mental status NL, Mood NL laboratory and microbiology Laboratory Tests 06/15/24 05:28 Test 06/15/24 05:28 Range/Units Serum Glucose 134 H 74-106 mg/dL Microbiology Date/Time Source Procedure Growth Status 06/14/24 04:16 Blood Blood Culture - Preliminary Resulted 06/14/24 03:05 Voided Urine Urine Culture - Preliminary Resulted Problem List/Assessment/Plan Problem List/Assessment/Plan Assessment Uncontrolled diabetes mellitus, A1c of 10.7 -->Mild sliding scale ACHS --> Counselled the patient on the importance of medication adherence; complications of diabetes like kidney failure,cardiac and diabetic retinopathy, diabetic neuropathy --> Encourage checking blood glucose check kit for daily blood SIRS --> tachycardia and tachypnea in the setting of UTI UTI --> Repeat UA with clean catch --> Urine culture positive for gram negative rods --> Ceftriaxone daily HINTON --> transaminitis Mild hyponatremia --> corrected Na: 129 --> Monitor closely Dyslipidemia Chest pain- --> EKG sinus rhythm not ekg changes DVT prophylaxis: Encourage mobility while on the wards Spasm more than 20 minute: Full code Case and plan discussed with Dr. Andres Maza discussed with: Patient GRACIE VIDAL RESIDENT Jun 15, 2024 13:23
[2024-06-16] VITALS (8 sets, daily range): BP systolic 101–118; BP diastolic 40–82; PULSE 72–88; RESP 17–20; TEMP 98–98.7; O2SAT 96–100
[2024-06-16 07:40] LABS: Basophils # (auto) 0 10 ^3/uL (0-0.2); Basophils % (auto) 0.5 % (0.0-2.0); Eosinophils # (auto) 0 10 ^3/uL (0-0.8); Eosinophils % (auto) 0.8 % (0.0-7.0); Hematocrit 31.3 % (36.0-46.0); Lymphocytes # (auto) 1.3 10 ^3/uL (0.4-5.4); Lymphocytes % (auto) 24.6 % (10.0-50.0); Mean Corpuscular Hgb Conc. 35.1 g/dL (32.0-36.0); Mean Corpuscular Volume 82.5 fL (80.0-100.0); Monocytes # (auto) 0.5 10 ^3/uL (0-1.3); Monocytes % (auto) 9.6 % (0.0-12.0); Neutrophils # (auto) 3.4 10 ^3/uL (1.6-8.6); Neutrophils % (auto) 64.5 % (37.0-80.0); Platelet Count (auto) 346 10^3/uL (140-450); Red Blood Cells 3.79 10^6/uL (4.0-5.20); Red Cell Distribution Width 13.4 % (11.8-14.3); White Blood Cell 5.2 10^3/uL (4.4-10.8)
[2024-06-16 08:00] LABS: Anion Gap 8 (5-15); Carbon Dioxide 25 mmol/L (20-31); Chloride 102 mmol/L (98-107)
[2024-06-16 08:01] LABS: Calcium 9.2 mg/dL (8.7-10.4); Sodium 135 mmol/L (136-145)
[2024-06-16 08:08] LABS: Blood Urea Nitrogen 6 mg/dL (9-23); Glucose 141 mg/dL (74-106)
[2024-06-16] MEDS: POTASSIUM EFFERVESENT TAB 25 MEQ PO ONE (13:30)
--- NOTE | 2024-06-16 15:20 | ECG ---
[facility] Test Date: 2024-06-15 Test Time: 17:55:14 Pat Name: SARAH NICOLE Department: Respiratoy Room: [address] [place] [address] 1 Gender: F Calker: : [id number] Requested By: GRACIE VIDAL Order Number: [id number] Reading MD: David Bragg Measurements Intervals [place] Rate: 84 P: 18 MO: 132 QRS: 31 QRSD: 98 T: 11 QT: 367 QTc: 434 Interpretive Statements Sinus rhythm Electronically Signed On 06-18-2024 20:23:31 PDT by David Bragg Please click the below link to view image of tracing.
[2024-06-16 16:11] LABS: Urine Bacteria FEW /hpf (None Seen); Urine Blood Negative /uL (Negative); Urine Clarity Clear (Clear); Urine Color Yellow (Yellow); Urine Protein, UAD Negative (Negative); Urine Specific Gravity 1.013 (1.001-1.035); Urine Squamous Epithelial Cell FEW /hpf (<5); Urine Urobilinogen 4 mg/dL (Negative); Urine pH 6.5 (5.0-9.0)
[2024-06-16 16:57] LABS: Urine Mucus FEW (None Seen); Urine WBC 7 /HPF (0-5)
--- NOTE | 2024-06-16 18:27 | DVHPNRES ---
Progress Note Date Seen: Jun 16, 2024 Resident Creating Document: GRACIE VIDAL RESIDENT Has the PT tested + for MRSA If YES, has PT been informed?: No Medical Necessity Reason Pt with a Central, PICC or Fol: No Medical Necessity Reason This is a 39-year-old female with a past medical history of type 2 DM diagnosed many years ago presented to the ED with intermittent chest pain, shortness of breath nausea vomiting and constipation. According to the patient she is not really taking her diabetes seriously and has not been compliant with her lifestyle medications and medications. She actually visited her primary care physician 2 weeks ago where her A1c level was measured to be 13. Patient was started on Ozempic and Jardiance and was asked to follow up in 2 weeks, this Saturday. However, patient presented to the ED because she started feeling unwell bilateral flank pain and from there went downhill thus prompting this visit. In ED, UA was positive for UTI blood glucose 349-->234---> 147 with A1C of 10.7. Patient started on mild ACHS. 12 lead ekg shows sinus rhythm no ST changes noted on any lead. Today, during my evaluation, patient has no complaints. No tingling sensation, glove and stocking sensation, blurring vision, vomiting, melena, tobacco, illicit drug, or ETOH use. Past Medical History: DM Past Surgical History: C-sec,Tubal ligation Family History: Diabetes, hyperlipidemia and heart disease Past Social History: The patient lives at home, denies smoking, alcohol or illicit drugs abuse and currently going through , 4 children Medication: On Ozempic and Jardiance PN; 06/16/2024 Patient reports feeling a little feverish in the morning. Her blood culture came back positive for bacteremia. Blood grew e.coli sensitive to cephalosporins. Will continue patient on Ceftriaxone. She is on insuine 16 lantus and reguluar insulin during the day. Patient has been wanting to discharge because she said she has an autistic that is difficult to handle. Subjective Review of Systems Constitutional: Denies chills no feeling of malaise, fever HEENT: Denies headache, ear pain, ear discharges, conjunctivitis, nasal discharge throat pain Cardiovascular: Denies chest pain, palpitation, orthopnea, PND, or pedal edema Respiratory: Denies shortness of breath, cough cough, sputum production, hemoptysis, GI: Denies abdominal pain, nausea, vomiting, diarrhea, hematemesis, hematochezia, : Denies frequency, urgency, hematuria, Endocrine: Denies unintentional weight gain or weight loss, feeling of hot flashes, Roger: Denies easy bruising, bleeding disorders, epistaxis Musculoskeletal: Denies joint pains, muscle aches Psych: No evidence of depression, babs, suicidal ideation Objective vital signs Vital Sign Date Time Temp Pulse Resp B/P (MAP) Pulse Ox O2 Delivery O2 Flow Rate FiO2 06/16/24 17:00 98.1 72 17 102/57 (72) 100 98.1 06/16/24 08:00 Room Air* 0 21 Total Intake and Output 06/15/24 06/15/24 06/16/24 15:00 23:00 07:00 Intake Total 50 ml 0 ml 975 ml Balance 50 ml 0 ml 975 ml medications Current Medications Medications Dose Ordered Sig/Shraddha Route Start Time Stop Time Status Last Admin Dose Admin Acetaminophen/ Hydrocodone Bitart 1 tab Q4HP PRN PO 06/14/24 07:45 Ondansetron HCl 4 mg Q4HP PRN IV 06/14/24 07:45 Acetaminophen 650 mg Q6HP PRN PO 06/14/24 07:45 06/16/24 08:50 650 MG Morphine Sulfate 2 mg Q4HPRN PRN IV 06/14/24 07:45 Atorvastatin Calcium 40 mg HS PO 06/14/24 22:00 06/15/24 21:43 40 MG Ceftriaxone Sodium 50 ml @ 100 mls/hr DAILY@09 IV 06/14/24 09:00 06/16/24 08:50 100 MLS/HR Sodium Chloride 1,000 ml @ 100 mls/hr Q10H IV 06/14/24 09:00 06/16/24 08:50 100 MLS/HR Diagnostic Test (Pha) 1 strip ACHS 06/14/24 11:30 06/16/24 16:57 1 STRIP Insulin Human Regular ACHS SC 06/14/24 11:30 06/16/24 17:18 6 UNITS Dextrose 50 ml UD PRN IV 06/14/24 11:30 Insulin Glargine 16 units HS SC 06/14/24 22:00 06/15/24 21:43 16 UNITS Examination General Appearance: Alert, Oriented X3, Cooperative, No acute distress HEENT: Atraumatic, PERRLA, EOMI, Mucous membrane moist/pink Respiratory: Clear to auscultation, Normal air movement Cardiovascular: Regular rate, Normal S1, Normal S2, No murmurs, no chest wall tenderness Abdominal: NO distention, no tenderness, bowel sounds present, no scars noted Extremities: No clubbing, No cyanosis, No edema, Normal pulses, No tenderness/swelling Skin: No rashes, No breakdown, No significant lesion Neuro: Normal gait, Normal speech, Strength at 5/5 X4 ext, Normal tone, Sensation intact, Cranial nerves 3-12 NL, Reflexes 2+ Psych/Mental Status: Mental status NL, Mood NL laboratory and microbiology Laboratory Tests 06/16/24 05:16 Test 06/16/24 05:16 Range/Units Serum Glucose 141 H 74-106 mg/dL Microbiology Date/Time Source Procedure Growth Status 06/14/24 04:16 Blood Blood Culture - Final Escherichia coli Complete 06/14/24 03:05 Voided Urine Urine Culture - Final Escherichia coli Complete Problem List/Assessment/Plan Problem List/Assessment/Plan Assessment Uncontrolled diabetes mellitus, A1c of 10.7 -->Mild sliding scale ACHS --> Counselled the patient on the importance of medication adherence; complications of diabetes like kidney failure,cardiac and diabetic retinopathy, diabetic neuropathy --> Encourage checking blood glucose check kit for daily blood SIRS --> tachycardia and tachypnea in the setting of UTI Bacteremia --> Blood culture positive for Strep group A --> Sensitive to ceftriaxone, UTI --> Repeat UA with clean catch --> Urine culture positive for gram negative rods --> Ceftriaxone daily HINTON --> transaminitis Mild hyponatremia --> corrected Na: 129 --> Monitor closely Dyslipidemia Chest pain- --> EKG sinus rhythm not ekg changes DVT prophylaxis: Encourage mobility while on the wards Spasm more than 20 minute: Full code Case and plan discussed with Dr. Andres Maza discussed with: Patient My Orders My Orders Orders - GRACIE VIDAL Procedure Category Date Status Time Blood Culture ARIS 06/16/24 In Process (Pediatric) 15:16 Basic Metabolic Panel LAB 06/17/24 Verified 04:00 Complete Blood Count LAB 06/17/24 Verified 04:00 GRACIE VIDAL Jun 16, 2024 18:27
[2024-06-17] VITALS (8 sets, daily range): BP systolic 97–119; BP diastolic 55–74; PULSE 71–90; RESP 18–20; TEMP 97.4–97.9; O2SAT 96–99
[2024-06-17 06:50] LABS: Basophils # (auto) 0 10 ^3/uL (0-0.2); Basophils % (auto) 0.4 % (0.0-2.0); Eosinophils # (auto) 0.1 10 ^3/uL (0-0.8); Eosinophils % (auto) 1.1 % (0.0-7.0); Hematocrit 30.9 % (36.0-46.0); Hemoglobin 10.7 g/dL (12.2-16.2); Lymphocytes # (auto) 1.4 10 ^3/uL (0.4-5.4); Lymphocytes % (auto) 28.5 % (10.0-50.0); Mean Corpuscular Hemoglobin 28.6 pg (28.0-32.0); Mean Corpuscular Hgb Conc. 34.5 g/dL (32.0-36.0); Mean Corpuscular Volume 82.9 fL (80.0-100.0); Monocytes # (auto) 0.5 10 ^3/uL (0-1.3); Monocytes % (auto) 9.3 % (0.0-12.0); Neutrophils % (auto) 60.7 % (37.0-80.0); Platelet Count (auto) 367 10^3/uL (140-450); Red Blood Cells 3.73 10^6/uL (4.0-5.20); Red Cell Distribution Width 13.4 % (11.8-14.3); White Blood Cell 4.9 10^3/uL (4.4-10.8)
[2024-06-17 07:36] LABS: Chloride 104 mmol/L (98-107); Potassium 3.5 mmol/L (3.5-5.1); Sodium 138 mmol/L (136-145)
[2024-06-17 07:37] LABS: Anion Gap 9 (5-15); Carbon Dioxide 25 mmol/L (20-31)
[2024-06-17 07:41] LABS: Calcium 8.7 mg/dL (8.7-10.4)
[2024-06-17 07:42] LABS: BUN/Creatinine Ratio 11.3 (10.0-20.0)
[2024-06-17 07:44] LABS: Blood Urea Nitrogen 6 mg/dL (9-23); Glucose 261 mg/dL (74-106)
--- NOTE | 2024-06-17 19:11 | DVHPNRES ---
Progress Note Date Seen: Jun 17, 2024 Resident Creating Document: GRACIE VIDAL RESIDENT Has the PT tested + for MRSA If YES, has PT been informed?: No Medical Necessity Reason Pt with a Central, PICC or Fol: No Medical Necessity Reason This is a 39-year-old female with a past medical history of type 2 DM diagnosed many years ago presented to the ED with intermittent chest pain, shortness of breath nausea vomiting and constipation. According to the patient she is not really taking her diabetes seriously and has not been compliant with her lifestyle medications and medications. She actually visited her primary care physician 2 weeks ago where her A1c level was measured to be 13. Patient was started on Ozempic and Jardiance and was asked to follow up in 2 weeks, this Saturday. However, patient presented to the ED because she started feeling unwell bilateral flank pain and from there went downhill thus prompting this visit. In ED, UA was positive for UTI blood glucose 349-->234---> 147 with A1C of 10.7. Patient started on mild ACHS. 12 lead ekg shows sinus rhythm no ST changes noted on any lead. Today, during my evaluation, patient has no complaints. No tingling sensation, glove and stocking sensation, blurring vision, vomiting, melena, tobacco, illicit drug, or ETOH use. Past Medical History: DM Past Surgical History: C-sec,Tubal ligation Family History: Diabetes, hyperlipidemia and heart disease Past Social History: The patient lives at home, denies smoking, alcohol or illicit drugs abuse and currently going through , 4 children Medication: On Ozempic and Jardiance PN; 06/16/2024 Patient reports feeling a little feverish in the morning. Her blood culture came back positive for bacteremia. Blood grew e.coli sensitive to cephalosporins. Will continue patient on Ceftriaxone. She is on insulin 16 Lantus and regular insulin during the day. Patient has been wanting to discharge because she said she has an autistic that is difficult to handle. PN: 06/17/2024 Patient is doing well. She has not new complaints. Her blood culture from 06/14/2024 was positive for E.coli. Thus far, she has received 3 doses of Ceftriaxone. We are culturing her blood everyday until is negative. Preliminary reading from 06/16/2024 not showing any growth right now. Subjective Review of Systems Constitutional: Denies fever no chills no feeling of malaise HEENT: Denies headache, ear pain, ear discharges, conjunctivitis, nasal discharge throat pain Cardiovascular: Denies chest pain, palpitation, orthopnea, PND, or pedal edema Respiratory: Denies shortness of breath, cough cough, sputum production, hemoptysis, GI: Denies abdominal pain, nausea, vomiting, diarrhea, hematemesis, hematochezia, : Denies frequency, urgency, hematuria, Endocrine: Denies unintentional weight gain or weight loss, feeling of hot flashes, Roger: Denies easy bruising, bleeding disorders, epistaxis Musculoskeletal: Denies joint pains, muscle aches Psych: No evidence of depression, babs, suicidal ideation Objective vital signs Vital Sign Date Time Temp Pulse Resp B/P (MAP) Pulse Ox O2 Delivery O2 Flow Rate FiO2 06/17/24 16:33 97.9 71 18 119/68 (85) 99 97.9 06/17/24 08:00 Room Air* 0 21 Total Intake and Output 06/16/24 06/16/24 06/17/24 15:00 23:00 07:00 Intake Total 950 ml 900 ml 1700 ml Balance 950 ml 900 ml 1700 ml medications Current Medications Medications Dose Ordered Sig/Shraddha Route Start Time Stop Time Status Last Admin Dose Admin Acetaminophen/ Hydrocodone Bitart 1 tab Q4HP PRN PO 06/14/24 07:45 Ondansetron HCl 4 mg Q4HP PRN IV 06/14/24 07:45 Acetaminophen 650 mg Q6HP PRN PO 06/14/24 07:45 06/16/24 08:50 650 MG Morphine Sulfate 2 mg Q4HPRN PRN IV 06/14/24 07:45 Atorvastatin Calcium 40 mg HS PO 06/14/24 22:00 06/16/24 21:07 40 MG Ceftriaxone Sodium 50 ml @ 100 mls/hr DAILY@09 IV 06/14/24 09:00 06/17/24 09:14 100 MLS/HR Sodium Chloride 1,000 ml @ 100 mls/hr Q10H IV 06/14/24 09:00 06/17/24 06:49 100 MLS/HR Diagnostic Test (Pha) 1 strip ACHS 06/14/24 11:30 06/17/24 16:28 1 STRIP Insulin Human Regular ACHS SC 06/14/24 11:30 06/17/24 16:29 4 UNITS Dextrose 50 ml UD PRN IV 06/14/24 11:30 Insulin Glargine 16 units HS SC 06/14/24 22:00 06/16/24 21:16 16 UNITS Examination General Appearance: Alert, Oriented X3, Cooperative, No acute distress HEENT: Atraumatic, PERRLA, EOMI, Mucous membrane moist/pink Respiratory: Clear to auscultation, Normal air movement Cardiovascular: Regular rate, Normal S1, Normal S2, No murmurs, no chest wall tenderness Abdominal: NO distention, no tenderness, bowel sounds present, no scars noted Extremities: No clubbing, No cyanosis, No edema, Normal pulses, No tenderness/swelling Skin: No rashes, No breakdown, No significant lesion Neuro: Normal gait, Normal speech, Strength at 5/5 X4 ext, Normal tone, Sensation intact, Cranial nerves 3-12 NL, Reflexes 2+ Psych/Mental Status: Mental status NL, Mood NL laboratory and microbiology Laboratory Tests 06/17/24 05:56 Test 06/17/24 05:56 Range/Units Serum Glucose 261 H 74-106 mg/dL Microbiology Date/Time Source Procedure Growth Status 06/16/24 16:43 Blood Blood Culture - Preliminary NO GROWTH AFTER 24 HOURS OF INCUBATION. Resulted 06/14/24 03:05 Voided Urine Urine Culture - Final Escherichia coli Complete Problem List/Assessment/Plan Problem List/Assessment/Plan Assessment Uncontrolled diabetes mellitus, A1c of 10.7 -->Mild sliding scale ACHS --> Counselled the patient on the importance of medication adherence; complications of diabetes like kidney failure,cardiac and diabetic retinopathy, diabetic neuropathy --> Encourage checking blood glucose check kit for daily blood SIRS --> tachycardia and tachypnea in the setting of UTI Bacteremia --> Blood culture positive for Strep group A --> Sensitive to ceftriaxone, --> Repeat blood culture UTI --> Repeat UA with clean catch --> Urine culture positive for gram negative rods --> Ceftriaxone daily HINTON --> transaminitis Mild hyponatremia --> corrected Na: 129 --> Monitor closely Dyslipidemia Chest pain- --> EKG sinus rhythm not ekg changes DVT prophylaxis: Encourage mobility while on the wards Spasm more than 20 minute: Full code Case and plan discussed with Dr. Andres Plan discussed with: Patient My Orders My Orders Orders - GRACIE VIDAL RESIDENT Procedure Category Date Status Time Blood Culture ARIS 06/17/24 In Process 16:45 Dietary Evaluation Review Comments: 1. Agree with 60 gm CHO, cardiac diet as tolerated 2. Continue to monitor glycemic control, goal BG <180 mg/dl while admitted 3. 16 units Lantus, ss insulin per protocol 4. Would benefit from outpatient counseling w/ [facility] for additional support 5. Monitor/document PO intake, will assess need for oral supplements on FU Expected Outcomes/Goals: Good glycemic control, improved nutrition-related labs, adequate nutrition. GRACIE VIDAL RESIDENT Jun 17, 2024 19:11
[2024-06-18] VITALS (7 sets, daily range): BP systolic 105–117; BP diastolic 60–73; PULSE 65–76; RESP 18–20; TEMP 97.5–98.1; O2SAT 96–99
[2024-06-18 06:20] LABS: Basophils # (auto) 0 10 ^3/uL (0-0.2); Basophils % (auto) 0.4 % (0.0-2.0); Eosinophils # (auto) 0.1 10 ^3/uL (0-0.8); Eosinophils % (auto) 1.3 % (0.0-7.0); Hematocrit 29.9 % (36.0-46.0); Hemoglobin 10.5 g/dL (12.2-16.2); Lymphocytes # (auto) 1.9 10 ^3/uL (0.4-5.4); Lymphocytes % (auto) 32.2 % (10.0-50.0); Mean Corpuscular Hgb Conc. 35.1 g/dL (32.0-36.0); Mean Corpuscular Volume 82.7 fL (80.0-100.0); Monocytes # (auto) 0.5 10 ^3/uL (0-1.3); Monocytes % (auto) 8.2 % (0.0-12.0); Neutrophils # (auto) 3.4 10 ^3/uL (1.6-8.6); Neutrophils % (auto) 57.9 % (37.0-80.0); Nucleated Red Blood Cells % 0.1 %; Platelet Count (auto) 403 10^3/uL (140-450); Red Blood Cells 3.62 10^6/uL (4.0-5.20); Red Cell Distribution Width 13.9 % (11.8-14.3)
[2024-06-18 06:27] LABS: Anion Gap 7 (5-15); Calcium 8.9 mg/dL (8.7-10.4); Carbon Dioxide 26 mmol/L (20-31); Chloride 106 mmol/L (98-107); Sodium 139 mmol/L (136-145)
[2024-06-18 06:34] LABS: BUN/Creatinine Ratio 9.1 (10.0-20.0); Blood Urea Nitrogen < 5 mg/dL (9-23); Glucose 191 mg/dL (74-106); Potassium 3.4 mmol/L (3.5-5.1)
--- NOTE | 2024-06-18 14:42 | DVHDSRES ---
Discharge Summary Date of Admission Resident Creating Document: GRACIE VIDAL RESIDENT Jun 14, 2024 at 07:38 Date of Discharge: Jun 18, 2024 Admitting Diagnosis Shortness of breath, nausea, vomiting, and constipation. Labs/Diagnostic Data: PATIENT: SARAH NICOLE ACCT: [id number] UNIT: [id number] : 1985 LOC: ER ROOM / BED: / AGE / SEX: 39 / F ADM STATUS: REG ER SERVICE 0135 ORDERING PHYSICIAN: MIKO SHIELDS MD PROCEDURE(s): CXRP - CHEST PORTABLE REASON: SOB ORDER NUMBER(s): [id number], ACCESSION NUMBER(s): [id number] CHEST RADIOGRAPH Indication: SOB Technique: Single frontal view of the chest was obtained COMPARISON: CHEST PORTABLE on DOS: 03/07/21 FINDINGS: Lines and Tubes: None Lungs: Clear Pleura: No effusion. No pneumothorax. Cardiomediastinal contours: Unremarkable Bones: Unremarkable IMPRESSION: 1. No acute disease. ATED BY: SOM GRAHAM MD DICTATED DATE/TIME: 06/14/24 0221 Laboratory Results Test 06/18/24 11:11 06/18/24 05:38 06/16/24 14:30 06/15/24 05:28 POC Glucose 182 mg/dl (70-106) White Blood Count 6.0 10^3/uL (4.4-10.8) Red Blood Count 3.62 10^6/uL (4.0-5.20) Hemoglobin 10.5 g/dL (12.2-16.2) Hematocrit 29.9 % (36.0-46.0) Mean Corpuscular Volume 82.7 fL (80.0-100.0) Mean Corpuscular Hemoglobin 29.0 pg (28.0-32.0) Mean Corpuscular Hemoglobin Concent 35.1 g/dL (32.0-36.0) Red Cell Distribution Width 13.9 % (11.8-14.3) Platelet Count 403 10^3/uL (140-450) Mean Platelet Volume 7.3 fL (6.9-10.8) Neutrophils (%) (Auto) 57.9 % (37.0-80.0) Lymphocytes (%) (Auto) 32.2 % (10.0-50.0) Monocytes (%) (Auto) 8.2 % (0.0-12.0) Eosinophils (%) (Auto) 1.3 % (0.0-7.0) Basophils (%) (Auto) 0.4 % (0.0-2.0) Neutrophils # (Auto) 3.4 10 ^3/uL (1.6-8.6) Lymphocytes # (Auto) 1.9 10 ^3/uL (0.4-5.4) Monocytes # (Auto) 0.5 10 ^3/uL (0-1.3) Eosinophils # (Auto) 0.1 10 ^3/uL (0-0.8) Basophils # (Auto) 0 10 ^3/uL (0-0.2) Nucleated Red Blood Cells 0.1 % Sodium Level 139 mmol/L (136-145) Potassium Level 3.4 mmol/L (3.5-5.1) Chloride Level 106 mmol/L (98-107) Carbon Dioxide Level 26 mmol/L (20-31) Anion Gap 7 (5-15) Blood Urea Nitrogen < 5 mg/dL (9-23) Creatinine 0.55 mg/dL (0.550-1.02) Glomerular Filtration Rate Calc 121 mL/min (>90) BUN/Creatinine Ratio 9.1 (10.0-20.0) Serum Glucose 191 mg/dL (74-106) Calcium Level 8.9 mg/dL (8.7-10.4) Urine Color Yellow (Yellow) Urine Clarity Clear (Clear) Urine pH 6.5 (5.0-9.0) Urine Specific [place] 1.013 (1.001-1.035) Urine Protein Negative (Negative) Urine Ketones 1+ (Negative) Urine Blood Negative /uL (Negative) Urine Nitrite Negative (Negative) Urine Bilirubin Negative (Negative) Urine Urobilinogen 4 mg/dL (Negative) Urine Leukocyte Esterase Trace /uL (Negative) Urine RBC 1 /hpf (0 - 4) Urine Microscopic WBC 7 /HPF (0-5) Urine Squamous Epithelial Cells Few /hpf (<5) Urine Transitional Epithelial Cells Few /hpf (<2) Urine Bacteria Few /hpf (None Seen) Urine Mucus Few (None Seen) Urine Glucose Normal mg/dL (Normal) Total Bilirubin 0.4 mg/dL (0.2-1.0) Aspartate Amino Transferase (AST) 115 U/L (13-40) Alanine Aminotransferase (ALT) 122 U/L (7-40) Alkaline Phosphatase 364 U/L (46-116) Total Protein 6.1 g/dL (5.7-8.2) Albumin 3.6 g/dL (3.2-4.8) Test 06/14/24 04:16 06/14/24 03:05 06/14/24 02:31 06/14/24 01:57 Lactic Acid Level 1.0 mmol/L (0.4-2.0) Urine WBC Clumps Present /hpf (None Seen) Influenza Type A Antigen Negative (Negative) Influenza Type B Antigen Negative (Negative) SARS-CoV-2 Antigen (Rapid) Negative (NEGATIVE) Hemoglobin A1c 10.7 % A1C (<5.7) B-Type Natriuretic Peptide 11.29 pg/mL (0-100) Triglycerides Level 229 mg/dL (< 150) Cholesterol Level 250 mg/dL (< 200) LDL Cholesterol 178 mg/dL (< 100) HDL Cholesterol 34 mg/dL (40-59) Hepatitis A IgM Antibody Negative Hepatitis B Surface Antigen Negative (Negative) Hepatitis B Core IgM Antibody Negative (Negative) Hepatitis C Antibody Negative (Negative) Other Laboratory Tests 06/18/24 05:38 Brief Hx & Hospital Course: History and physical This is a 39-year-old female with a past medical history of type 2 DM diagnosed many years ago presented to the ED with intermittent chest pain, shortness of breath nausea vomiting and constipation. According to the patient she is not really taking her diabetes seriously and has not been compliant with her lifestyle medications and medications. She actually visited her primary care physician 2 weeks ago where her A1c level was measured to be 13. Patient was started on Ozempic and Jardiance and was asked to follow up in 2 weeks, this Saturday06/17/2023. However, patient presented to the ED because she started feeling unwell bilateral flank pain and from there went downhill thus prompting this visit. In ED, UA was positive for UTI blood glucose 349-->234---> 147 with A1C of 10.7. 12 lead ekg shows sinus rhythm no ST changes noted on any lead. Past Medical History: DM Past Surgical History: C-sec,Tubal ligation Family History: Diabetes, hyperlipidemia and heart disease Past Social History: The patient lives at home, denies smoking, alcohol or illicit drugs abuse and currently going through , 4 children Medication: On Ozempic and Jardiance BRIEF HOSPITAL COURSE paatient was admitted and managed her for UTI and uncontrolled diabetes. During my initial assessment, patient had no complaints. She denied tingling sensation, glove and stocking sensation, blurring vision, vomiting, melena, tobacco, illicit drug, or ETOH use. Her urine culture grew E.coli and we started her on Ceftriaxone whilst pending the result of the blood culture. We continue same regime whilst managing her blood sugar with insulin ( basal bolus) with a goal of maintaing her blood sugar range between 140-180 whilst in the Hospital. Her blood culture grew E.coli as well. We continue management with ceftriaxone daily whilst doing daily blood culture to sure the blood is completely cleared of of E.coli and no sticking bacteria lingering like staph aureus. Her second repeat blood culture did not grow any bacteria in 24 hours. Patients looks stable, no fevers, chills. We discharge patient hoe with home health to continue her IV ceftriaxone for 10 more days. Continue her home anti-diabetic medication and follow up with her PCP. Patient counseled thoroughly on Diabetes and its complications and the importance of medication adheres and maintaining all doctor visits. Repeat A1C in 3 months. Patient advised to follow up with the disease control inspector to have a yearly ocular examination. Review of systems Constitutional: Denies fever no chills no feeling of malaise HEENT: Denies headache, ear pain, ear discharges, conjunctivitis, nasal discharge throat pain Cardiovascular: Denies chest pain, palpitation, orthopnea, PND, or pedal edema Respiratory: Denies shortness of breath, cough cough, sputum production, hemoptysis, GI: Denies abdominal pain, nausea, vomiting, diarrhea, hematemesis, hematochezia, : Denies frequency, urgency, hematuria, Endocrine: Denies unintentional weight gain or weight loss, feeling of hot flashes, Roger: Denies easy bruising, bleeding disorders, epistaxis Musculoskeletal: Denies joint pains, muscle aches Psych: No evidence of depression, babs, suicidal ideation Examination General Appearance: Alert, Oriented X3, Cooperative, No acute distress HEENT: Atraumatic, PERRLA, EOMI, Mucous membrane moist/pink Respiratory: Clear to auscultation, Normal air movement Cardiovascular: Regular rate, Normal S1, Normal S2, No murmurs, no chest wall tenderness Abdominal: NO distention, no tenderness, bowel sounds present, no scars noted Extremities: No clubbing, No cyanosis, No edema, Normal pulses, No tenderness/swelling Skin: No rashes, No breakdown, No significant lesion Neuro: Normal gait, Normal speech, Strength at 5/5 X4 ext, Normal tone, Sensation intact, Cranial nerves 3-12 NL, Reflexes 2+ Psych/Mental Status: Mental status NL, Mood NL Diagnoses Uncontrolled diabetes mellitus, A1c of 10.7 SIRS Bacteremia UTI [place] Mild hyponatremia Dyslipidemia Chest pain- DISCHARGE PLANNING Going home with home health for IV Ceftriaxone for 10 days Patient advised to follow up at the discharge clinic in 14 days Daily fasting blood glucose dairy and take that to her pcp for evaluation to see if adjustment is needed for her medications. Follow up with per PCP Get yearly ocular examination to asses for diabetic retinopathy Patient advised to return to the ED if she is not getting any better Discharge plan discussed + Dr. Campos ( ATTENDING) Condition at Discharge: Stable Final Diagnosis/Problems List Uncontrolled diabetes mellitus, A1c of 10.7 SIRS Bacteremia UTI [place] Mild hyponatremia Dyslipidemia Chest pain- Discharge Disposition: Home with Health Services Discharge Instruct/Medications Diet: See Comment Diet comment: Diabetic diet Activity: No Restrictions, As Tolerated Follow Up/Referral: 1 week Medications: IV Ceftriaxone 1 GM for 10 days Discharge Statement: "Patient was advised to return to the ER or call 911 if any headaches, dizziness, shortness of breath, chest pain, abdominal pain, bleeding, fevers, or worsening of medical condition. Patient was counseled about treatment plan, medications, possible side effects, patientverbalized understanding. All questions were answered to the best of my ability. This discharge took greater then 30 minutes in planning, reviewing documentation, counseling the patient, and discussing with other team members." ASSESSMENT ASSESSMENT Assessment Uncontrolled diabetes mellitus, A1c of 10.7 SIRS Bacteremia UTI [place] Mild hyponatremia Dyslipidemia Chest pain- GRACIE VIDAL RESIDENT Jun 18, 2024 14:42
[2024-06-19 01:00] VITALS: BP 118/72; PULSE 64; RESP 18; TEMP 97.8; O2SAT 98
[2024-06-19 05:00] VITALS: BP 111/67; PULSE 68; RESP 18; TEMP 97.8; O2SAT 97
[2024-06-19 08:00] VITALS: PULSE 69; RESP 15; O2SAT 96
[2024-06-19 08:48] VITALS: BP 104/69; PULSE 69; RESP 15; TEMP 97.6; O2SAT 96
[2024-06-19 08:51] LABS: Anion Gap 6 (5-15); Carbon Dioxide 25 mmol/L (20-31); Potassium 3.5 mmol/L (3.5-5.1); Sodium 140 mmol/L (136-145)
[2024-06-19 08:52] LABS: Calcium 9.1 mg/dL (8.7-10.4)
[2024-06-19 08:57] LABS: BUN/Creatinine Ratio 13.6 (10.0-20.0); Magnesium 1.8 mg/dL (1.6-2.6)
[2024-06-19 09:03] LABS: Blood Urea Nitrogen 6 mg/dL (9-23); Chloride 109 mmol/L (98-107); Glucose 132 mg/dL (74-106)
== END 2024-06-19 10:49 | disposition home health service (06) | DRG 420 ==
LOC: ER 01:09 → OVERFLOW 07:38 → EAST 10:11
PROVIDERS: ADMIT Student in an Organized Health Care Education/Training Program; ATTEND Student in an Organized Health Care Education/Training Program
PROC: 05HD33Z Insertion of Infusion Device into Right Cephalic Vein, Percutaneous Approach (ICD-10-PCS; principal; 2024-06-18)
PROC: B54MZZA Ultrasonography of Right Upper Extremity Veins, Guidance (ICD-10-PCS; 2024-06-18)
DX: E11.65 Type 2 diabetes mellitus with hyperglycemia (principal); R65.10 Systemic inflammatory response syndrome (SIRS) of non-infectious origin without acute organ dysfunction; K75.81 Nonalcoholic steatohepatitis (NASH); N39.0 Urinary tract infection, site not specified; E78.5 Hyperlipidemia, unspecified; K59.00 Constipation, unspecified; E86.0 Dehydration; Z79.4 Long term (current) use of insulin; Z79.899 Other long term (current) drug therapy; Z98.891 History of uterine scar from previous surgery
CPT/HCPCS: 36415; 71045; 80048; 80053; 80061; 80074; 81001; 82962; 83036; 83605; 83735; 83880; 85025; 87040; 87077; 87086; 87088; 87186; 87426; 87804; 93005; 94640; 96372; 96374; 99291; G0378; J1815; J2405